=== PATIENT | female | born 1990 | race American Indian/Alaskan Native ===

== ENCOUNTER 2017-01-28 13:35 | Emergency (ER) | payer MEDICAID ==
[2017-01-28 14:19] VITALS: BP 102/67
[2017-01-28] MEDS ORDERED: MOTRIN PO ONE (16:17)
--- NOTE | 2017-01-28 17:45 | XRay Report ---
FINAL REPORT PROCEDURE: XR WRIST 3 RT TECHNIQUE: Three views of the right wrist are obtained HISTORY: RIGHT WRIST pain/trauma COMPARISON: No prior studies are available for comparison. FINDINGS: There is no fracture or dislocation. No arthritic changes are seen. Mild soft tissue swelling is seen. IMPRESSION: No fracture is seen.
--- NOTE | 2017-01-28 17:46 | XRay Report ---
FINAL REPORT PROCEDURE: XR HAND 3 RT TECHNIQUE: Three views of the right hand are obtained HISTORY: RIGHT HAND pain/trauma COMPARISON: No prior studies are available for comparison. FINDINGS: There is a fracture of the base of the proximal phalanx of the thumb. This extends into the MCP joint. Fracture fragments are mildly displaced. Soft tissue swelling is seen. No dislocation is seen. IMPRESSION: Mildly displaced fracture of the base of the 1st proximal phalanges is seen.
--- NOTE | 2017-01-28 17:47 | XRay Report ---
FINAL REPORT PROCEDURE: XR FINGER(S) 2 RT TECHNIQUE: Three views of the right thumb are obtained HISTORY: RIGHT THUMB INJURY / PAIN / SWELLING COMPARISON: No prior studies are available for comparison. FINDINGS: Mildly displaced fracture of the base of the proximal phalanx of the thumb is seen. This extends into the MCP joint without dislocation. Soft tissue swelling is seen. IMPRESSION: Mildly displaced fracture is seen of the base of the proximal phalanx of the thumb.
--- NOTE | 2017-01-31 18:41 | Emergency Department Report ---
Entered by PHANI DEL ROSARIO, acting as scribe for ROBERT WILSON NP. ED Upper Extremity Inj HPI - General Chief Complaint: Extremity Injury, Upper Stated Complaint: POSS BROKEN THUMB/RIGHT HAND Time Seen by Provider: 01/28/17 15:39 Source: patient Mode of arrival: Ambulatory Limitations: No Limitations - History of Present Illness Initial Comments: 26 y/o female, non-toxic, no acute signs of distress, well nourished in appearance, presents with right thumb pain and swelling secondary to catching herself after falling down her stairs earlier today. Pt denies chills, fever, chest pain, SOB, LEY, dizziness, head trauma or snuff box tenderness. No additional Sx. NKDA. Complaint: Injury to:: finger (pain and swelling to right thumb) -: This morning Other Extremity Injury: Fingers: Right (thumb) Other Injuries: none Handedness: right Place: home Severity scale (0 -10): 6 Improves With: none Worsens With: movement of extremity Context: fall Associated Symptoms: denies other symptoms. denies: weakness, numbness - Related Data Previous Rx's Medication Instructions Recorded Last Taken Type HYDROcodone/APAP 7.5-325 [[place] 1 each PO Q8HR PRN #8 tablet 01/28/17 Unknown Rx 7.5/325] Allergies Allergy/AdvReac Type Severity Reaction Status Date / Time No Known Allergies Allergy Unverified 01/28/17 14:15 ED Review of Systems Comment: All other systems reviewed and negative Constitutional: denies: chills, fever Eyes: denies: eye pain, eye discharge, vision change ENT: denies: ear pain, throat pain Respiratory: denies: cough, shortness of breath Cardiovascular: denies: chest pain Endocrine: no symptoms reported Gastrointestinal: denies: abdominal pain, nausea, vomiting, diarrhea Genitourinary: denies: urgency, dysuria, discharge Musculoskeletal: other (right thumb pain and swelling) Skin: denies: rash Neurological: denies: headache, weakness, numbness Psychiatric: denies: anxiety, depression Hematological/Lymphatic: denies: easy bleeding, easy bruising ED Past Medical Hx - Past Medical History Previous Medical History?: No - Surgical History Additional Surgical History: - Social History Smoking Status: Never Smoker Substance Use Type: None - Medications Home Medications: Home Medications Medication Instructions Recorded Confirmed Last Taken Type HYDROcodone/APAP 7.5-325 [[place] 1 each PO Q8HR PRN #8 tablet 01/28/17 Unknown Rx 7.5/325] ED Physical Exam - General Limitations: No Limitations General appearance: alert, in no apparent distress - Head Head exam: Present: atraumatic, normocephalic - Eye Eye exam: Present: normal appearance, PERRL, EOMI - ENT ENT exam: Present: normal exam, normal orophraynx, mucous membranes moist - Neck Neck exam: Present: normal inspection, full ROM. Absent: tenderness, meningismus, lymphadenopathy - Respiratory Respiratory exam: Present: normal lung sounds bilaterally. Absent: respiratory distress, wheezes, rales, rhonchi, stridor, chest wall tenderness, accessory muscle use, decreased breath sounds, prolonged expiratory - Cardiovascular Cardiovascular Exam: Present: regular rate, normal rhythm, normal heart sounds. Absent: systolic murmur, diastolic murmur, rubs, gallop - GI/Abdominal GI/Abdominal exam: Present: soft, normal bowel sounds. Absent: distended, tenderness, guarding, rebound, rigid - Extremities Exam Extremities exam: Present: normal inspection, full ROM, normal capillary refill. Absent: tenderness, pedal edema, joint swelling, calf tenderness - Expanded Upper Extremity Exam Right General: Present: normal inspection Shoulder Exam: Present: normal inspection, full ROM. Absent: tenderness, swelling Upper Arm exam: Present: normal inspection, full ROM. Absent: tenderness, swelling Elbow exam: Present: normal inspection, full ROM. Absent: tenderness, swelling Forearm Wrist exam: Present: swelling, other (limited ROM due to pain) Hand Wrist exam: Present: swelling, other (limited ROM due to pain but pt denies snuff box tenderness). Absent: full ROM Neuro motor exam: Present: wrist extension intact Neurosensory exam: Present: 2-point discrimination, radial nerve intact, ulnar nerve intact, median nerve intact Vascular: Present: vascular compromise - Back Exam Back exam: Present: normal inspection, full ROM. Absent: tenderness, CVA tenderness (R), CVA tenderness (L), muscle spasm, paraspinal tenderness, vertebral tenderness - Neurological Exam Neurological exam: Present: alert, oriented X3, CN II-XII intact, normal gait, reflexes normal. Absent: motor sensory deficit - Psychiatric Psychiatric exam: Present: normal affect, normal mood - Skin Skin exam: Present: warm, normal color. Absent: rash ED Course Vital Signs 01/28/17 01/28/17 14:17 16:25 Temperature 99.4 F Pulse Rate 73 Respiratory 18 18 Rate Blood Pressure 102/67 O2 Sat by Pulse 100 Oximetry ED Medical Decision Making - Medical Decision Making Ed course: This is a 26-year-old female that presents with a displaced fracture of the first proximal phalange 1- as my physical exam, an x-ray of the finger, wrist, and hand has been obtained. X-ray of right finger states mildly displaced fx of the base of the 1st proximal phalanges is seen. X-ray of wrist and hand negative for fx. Dictated by Dr. Carrington. 2- Patient received a OCL thumb spica splint to the thumb area. No signs of numbness or tingling noted. Pt is able to move extremity. Denies tightness. 3- patient received [place] 7.5 mg for pain and was instructed to follow-up with orthopedic doctor in 24 hours. 4- at time time of discharge, the patient does not seem toxic or ill in appearance. No acute signs of distress noted. Patient agrees to discharge treatment plan of care. No further questions noted by the patient. ED Disposition Clinical Impression: Thumb fracture Disposition: DISCHARGED TO HOME OR SELFCARE Is pt being admited?: No Does the pt Need Aspirin: No Condition: Stable Instructions: Splint Care (ED), Thumb Fracture (ED) Additional Instructions: Follow-up with orthopedic doctor in 24 hours. Taken [place] as prescribed as needed for pain. Do not operate heavy machinery while taking [place]. Prescriptions: HYDROcodone/APAP 7.5-325 [[place] 7.5/325] 1 each PO Q8HR PRN #8 tablet PRN Reason: Pain Referrals: PRIMARY CAREMD [Primary Care Provider] - 3-5 Days [facility] [Outside] - 3-5 Days [facility] [place] [Outside] - 3-5 Days FLVAIO PADRON MD [Staff Physician] - 24 Hours This documentation as recorded by the CARIN [email or web address] RYAN,accurately reflects the service I personally performed and the decisions made by ,ROBERT WILSON, [employer] DEVELOPMENT MANAGER.
== END 2017-01-28 18:41 | disposition home or self-care (01) ==
LOC: ED 13:35
DX: S62.511A Displaced fracture of proximal phalanx of right thumb, initial encounter for closed fracture (principal); W10.9XXA Fall (on) (from) unspecified stairs and steps, initial encounter; Y93.89 Activity, other specified; Y92.89 Other specified places as the place of occurrence of the external cause; Y99.8 Other external cause status